=== PATIENT | female | born 1995 | race Caucasian/White ===

== ENCOUNTER 2018-10-29 10:33 | Outpatient (CLI) | payer OTHER ==
--- NOTE | 2018-10-29 10:51 | RAD ---
EXAM: 2 views of the left tibia/fibula HISTORY: Staph infection of left leg with swelling and pain COMPARISON: None FINDINGS: There is no evidence of acute fracture or dislocation. Mild pretibial soft tissue swelling is seen. Subtle well-circumscribed sclerotic lesions in the distal aspect of the tibia likely represent healing nonossifying fibromas. No degenerative changes are seen in the knee or ankle. IMPRESSION: No evidence of acute osseous abnormality.
== END 2018-10-29 10:34 | disposition home or self-care (01) ==
LOC: SCSRAD 10:33
PROVIDERS: ATTEND Nurse Practitioner Family
DX: L03.116 Cellulitis of left lower limb (principal)